=== PATIENT | female | born 1955 | race African-American/Black ===

== ENCOUNTER 2025-01-02 13:01 | Inpatient (IN) | payer OTHER ==
[2025-01-02 13:37] VITALS: BMI 29.8
[2025-01-02] MEDS ORDERED: NALOXONE (NARCAN) HCL 4 MG/0.1 ML SPRAY NS PRN (14:35)
[2025-01-02] MEDS ORDERED: guaiFENesin 600 MG TABLET.ER (FP) PO PRN (14:35)
[2025-01-02] MEDS ORDERED: BENZONATATE 200 MG CAPSULE PO PRN (14:35)
[2025-01-02] MEDS ORDERED: NICOTINE POLACRILEX 2 MG LOZENGE BC PRN (14:35)
[2025-01-02] MEDS ORDERED: P-EPHED 60MG/TRIPROLIDI 2.5MG TABLET PO PRN (14:35)
[2025-01-02] MEDS ORDERED: IBUPROFEN 400 MG TABLET (FP) PO PRN (14:35)
[2025-01-02] MEDS ORDERED: NICOTINE POLACRILEX 2 MG GUM BUC PRN (14:35)
[2025-01-02] MEDS ORDERED: LOPERAMIDE HCL 2 MG CAPSULE PO PRN (14:35)
[2025-01-02] MEDS ORDERED: POLYETHYLENE GLYCOL (HEALTHYLAX) 3350 17 GM PACKET PO PRN (14:35)
[2025-01-02 18:20] LABS: EPI CELLS 18 /uL (0-25.1); HYALINE CASTS 0 /uL (0-3.1); PH,URINE 5.5 (5.0-8.0); URINE APPEARANCE CLEAR; URINE BACTERIA 338 /uL (0-1359); URINE BILIRUBIN NEGATIVE (NEGATIVE); URINE COLOR YELLOW; URINE GLUCOSE (UA) NEGATIVE (NEGATIVE); URINE KETONE NEGATIVE (NEGATIVE); URINE LEUK ESTERASE NEGATIVE (NEGATIVE); URINE NITRITE NEGATIVE (NEGATIVE); URINE PROTEIN 1+ (NEGATIVE); URINE RBC 6 /uL (0-23.9); URINE UROBILINOGEN 0.2 mg/dL (0.2-1.0); URINE WBC 43 /uL (0-25.8)
[2025-01-02] MEDS: THIAMINE 100 MG TABLET PO SCH (21:23)
[2025-01-02] MEDS: ATORVASTATIN CA 40 MG TABLET (FP) PO SCH (21:23)
[2025-01-02] MEDS: MELATONIN 5 MG TABLETS PO SCH (21:23)
[2025-01-02] MEDS: amLODIPine BESYLATE 10 MG TABLET (FP) PO ONE (22:48)
[2025-01-03] MEDS: amLODIPine BESYLATE 10 MG TABLET (FP) PO SCH (09:16)
[2025-01-03] MEDS: LOSARTAN POTASSIUM 50 MG TABLET PO SCH (09:16)
[2025-01-03] MEDS: PRENATAL VITAMINS W/ FOLIC ACID TABLET (FP) PO SCH (09:16)
[2025-01-03] MEDS: EZETIMIBE 10 MG TABLET (FP) PO SCH (09:16)
[2025-01-03 12:29] LABS: HEMATOCRIT 39.8 % (34.1-44.9); HEMOGLOBIN 12.1 g/dL (11.2-15.7); MCHC 30.4 g/dl (32.2-35.5); MEAN CELL VOLUME 91.1 fl (79.4-94.8); MEAN PLT VOLUME 10.4 fl (9.4-12.3); PLATELET COUNT 257 x10^3/uL (182-369); RDW 13.5 % (12.4-16.4)
[2025-01-03 12:45] LABS: POTASSIUM 4.6 mmol/L (3.5-5.1)
[2025-01-03 12:52] LABS: CALCIUM 9.3 mg/dL (8.5-10.1)
[2025-01-03 12:53] LABS: ALBUMIN 3.5 g/dl (3.4-5.0); BLOOD UREA NITROGEN 22.9 mg/dL (7-18)
[2025-01-03 12:56] LABS: CREATININE 1.4 mg/dL (0.55-1.3)
[2025-01-03 12:58] LABS: BILIRUBIN,TOTAL 0.5 mg/dL (0.2-1); TOT PROT 7.5 g/dl (6.4-8.2)
[2025-01-03] MEDS: IBUPROFEN 600 MG TABLET (FP) PO PRN (14:44)
[2025-01-03] MEDS: ACETAMINOPHEN 325 MG TABLET (FP) PO PRN (17:30)
[2025-01-03] MEDS: MAG HYDROX/AL HYDROX/SIMETH 30 ML UNIT-DOSE CUP PO PRN (20:22)
[2025-01-03] MEDS: traZODone HCL 50 MG TABLET (FP) PO SCH (22:04)
[2025-01-04 13:28] LABS: POTASSIUM 4.2 mmol/L (3.5-5.1)
[2025-01-04 13:30] LABS: ALBUMIN 3.2 g/dl (3.4-5.0); BLOOD UREA NITROGEN 26.8 mg/dL (7-18); CALCIUM 9.5 mg/dL (8.5-10.1)
[2025-01-04 13:33] LABS: CREATININE 1.3 mg/dL (0.55-1.3)
[2025-01-04 13:34] LABS: PHOSPHOROUS 3.6 mg/dL (2.5-4.9)
[2025-01-05] MEDS: ALBUTEROL SO4 HFA INHALER IH PRN (21:39)
[2025-01-07] MEDS: METHYL SALICYLATE/MENTHOL 30 GM TUBE TP PRN (21:40)
[2025-01-08] MEDS: HYDROCORTISONE 1% TOPICAL CREAM 30 GM TUBE TP SCH (12:42)
[2025-01-13] MEDS: BENZOCAINE/MENTHOL (CHLORASEPTIC ) LOZENGE MM PRN (06:16)
[2025-01-13 10:55] VITALS: RESP 16
[2025-01-14] MEDS: MAGNESIUM HYDROX 2400MG/30ML ORAL SUSPENSION 30 ML CUP PO PRN (15:44)
[2025-01-15 07:10] VITALS: TEMP 97.3
[2025-01-15 09:06] VITALS: BP 119/70; PULSE 67
== END 2025-01-15 10:05 | disposition home or self-care (01) | DRG 895 ==
LOC: YASAS 13:01 → Y3NR 16:06 → Y5N 01-04 11:04
PROVIDERS: ADMIT Psychiatry & Neurology Pain Medicine; ATTEND Psychiatry & Neurology Pain Medicine
PROC: HZ42ZZZ Group Counseling for Substance Abuse Treatment, Cognitive-Behavioral (ICD-10-PCS; principal; 2025-01-02)
DX: F14.20 Cocaine dependence, uncomplicated (principal); F17.210 Nicotine dependence, cigarettes, uncomplicated; E78.5 Hyperlipidemia, unspecified; G47.00 Insomnia, unspecified; I12.9 Hypertensive chronic kidney disease with stage 1 through stage 4 chronic kidney disease, or unspecified chronic kidney disease; N18.9 Chronic kidney disease, unspecified; R26.89 Other abnormalities of gait and mobility; Z99.89 Dependence on other enabling machines and devices
CPT/HCPCS: 36415; 80053; 80069; 80305; 80307; 81003; 85027; 86780; 87811; 93005; 93010